=== PATIENT | female | born 1965 | race Caucasian/White ===

== ENCOUNTER 2020-09-02 22:32 | Inpatient (IN) | payer OTHER ==
[2020-09-02 22:48] LABS: Absolute Lymphocytes (CBC) 1.4 K/uL (0.7-4.9); Basophils % 0.8 % (0-1.3); Hematocrit 25.4 % (36.0-45.0); Lymphocytes % 14.2 % (15.3-44.8); MPV 7.8 fL (7.6-11.3); RBC Red Blood Cell Count 3.02 M/uL (3.86-4.86)
[2020-09-02 23:15] LABS: Barbiturates NEGATIVE (NEGATIVE); Benzodiazepines NEGATIVE (NEGATIVE); Cocaine NEGATIVE (NEGATIVE); METHAMPHETAM POSITIVE (NEGATIVE); Methadone NEGATIVE (NEGATIVE); Opiates POSITIVE (NEGATIVE); Phencyclidine NEGATIVE (NEGATIVE); THC Cannibis NEGATIVE (NEGATIVE)
[2020-09-02] MEDS ORDERED: NA CHLORIDE 0.9% 1,000 ML ONE (23:15)
[2020-09-02 23:16] LABS: ALT/SGPT 23 U/L (12-78); AST/SGOT 24 U/L (15-37); Alkaline Phosphatase 86 U/L (45-117); BUN Blood Urea Nitrogen 24 mg/dL (7-18); Bicarbonate 25 mmol/L (21-32); Bilirubin Direct < 0.1 mg/dL (0-0.2); Bilirubin Total 0.3 mg/dL (0.2-1.0); Glucose Level 103 mg/dL (74-106); Protein, Total 8.4 g/dL (6.4-8.2); Sodium Level 138 mmol/L (136-145)
[2020-09-02 23:18] LABS: Potassium 2.9 mmol/L (3.5-5.1)
--- NOTE | 2020-09-02 23:50 | EDPHYS ---
Physician Documentation [facility] Name: Samir Linares Age: 55 yrs Sex: Female : 1965 Arrival Date: 09/02/2020 Time: 22:35 Bed 4 Private MD: ED Physician Fransisco Hickman HPI: 09/02 23:42 This 55 yrs old Female presents to ER via EMS with complaints of Altered angelica Mental Status. 23:42 The patient presents with confusion, decreased responsiveness, trouble concentrating. angelica Onset: The symptoms/episode began/occurred just prior to arrival. Possible causes: CVA or TIA, drug use, alcohol. Associated signs and symptoms: Pertinent positives: confusion. Current symptoms: In the emergency department the patient's symptoms are unchanged from the initial presentation. Patient's baseline: Neuro: alert and fully oriented. The patient has experienced similar episodes in the past, a few times. 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 - Post-menopause rv Historical: - Allergies: 22:58 No Known Allergies; lp1 - Home Meds: 22:58 Oxycodone HCl Oral every 6 hours [Active]; methocarbamol 750 mg Oral tab 3 times per lp1 day [Active]; pramipexole 0.125 mg oral tab 3 tabs nightly [Active]; potassium chloride 10 mEq Oral TbER 1 tab once daily [Active]; zolpidem 10 mg Oral tab nightly [Active]; gabapentin 800 mg oral tab every 6 hours [Active]; omeprazole 40 mg Oral cpDR 1 cap 2 times per day [Active]; baclofen 10 mg Oral tab 1 tab 3 times per day [Active]; levothyroxine 137 mcg tab 1 tab once daily [Active]; Adderall XR 30 mg Oral cp24 twice a day [Active]; trazodone 150 mg Oral tab nightly [Active]; venlafaxine 75 mg oral tab 3 cap daily [Active]; topiramate 50 mg oral tab 1 tab 2 times per day [Active]; furosemide 20 mg Oral tab 1 tab once daily [Active]; 23:12 IV Ig treatments [Active]; lp1 - PMHx: 23:12 CIDP- autoimmune disease; Hypertension; lp1 - PSHx: 23:12 Jaw surgery; lp1 - Immunization history:: Adult Immunizations up to date. - Social history:: Smoking status: Smoking status: Patient reports the use of cigarette tobacco products, smokes one pack cigarettes per day. - Family history:: not pertinent. ROS: 23:43 Constitutional: Negative for fever, chills, and weight loss, Eyes: Negative for injury, angelica pain, redness, and discharge, ENT: Negative for injury, pain, and discharge, Neck: Negative for injury, pain, and swelling, Cardiovascular: Negative for chest pain, palpitations, and edema, Respiratory: Negative for shortness of breath, cough, wheezing, and pleuritic chest pain, Abdomen/GI: Negative for abdominal pain, nausea, vomiting, diarrhea, and constipation, Back: Negative for injury and pain, : Negative for injury, bleeding, discharge, and swelling, MS/Extremity: Negative for injury and deformity, Skin: Negative for injury, rash, and discoloration, Psych: Negative for depression, anxiety, suicide ideation, homicidal ideation, and hallucinations, Allergy/Immunology: Negative for hives, rash, and allergies, Endocrine: Negative for neck swelling, polydipsia, polyuria, polyphagia, and marked weight changes, Hematologic/Lymphatic: Negative for swollen nodes, abnormal bleeding, and unusual bruising. 23:43 Neuro: Positive for altered mental status. Exam: 23:43 Constitutional: This is a well developed, well nourished patient who is awake, alert, angelica and in no acute distress. Head/Face: Normocephalic, atraumatic. Eyes: Pupils equal round and reactive to light, extra-ocular motions intact. Lids and lashes normal. Conjunctiva and sclera are non-icteric and not injected. Cornea within normal limits. Periorbital areas with no swelling, redness, or edema. ENT: Nares patent. No nasal discharge, no septal abnormalities noted. Tympanic membranes are normal and external auditory canals are clear. Oropharynx with no redness, swelling, or masses, exudates, or evidence of obstruction, uvula midline. Mucous membranes moist. Neck: Trachea midline, no thyromegaly or masses palpated, and no cervical lymphadenopathy. Supple, full range of motion without nuchal rigidity, or vertebral point tenderness. No Meningismus. Chest/axilla: Normal chest wall appearance and motion. Nontender with no deformity. No lesions are appreciated. Cardiovascular: Regular rate and rhythm with a normal S1 and S2. No gallops, murmurs, or rubs. Normal PMI, no JVD. No pulse deficits. Abdomen/GI: Soft, non-tender, with normal bowel sounds. No distension or tympany. No guarding or rebound. No evidence of tenderness throughout. Back: No spinal tenderness. No costovertebral tenderness. Full range of motion. Skin: Warm, dry with normal turgor. Normal color with no rashes, no lesions, and no evidence of cellulitis. MS/ Extremity: Pulses equal, no cyanosis. Neurovascular intact. Full, normal range of motion. Psych: Awake, alert, with orientation to person, place and time. Behavior, mood, and affect are within normal limits. 23:43 Respiratory: the patient does not display signs of respiratory distress, Respirations: normal, Breath sounds: bronchial sounds, rhonchi, that are mild, are scattered, Respiratory rate: 81 09/03 00:44 ECG was reviewed by the Attending Physician. angelica Vital Signs: 09/02 22:20 BP 98 / 68; Pulse 81; Resp 16; Temp 97.9(A); Pulse Ox 100% on R/A; Weight 99.79 kg; lp1 09/03 00:35 BP 142 / 86; Pulse 84; Resp 17; Pulse Ox 100% on R/A; rv MDM: 09/02 22:56 Patient medically screened. angelica 23:45 Differential Diagnosis: CVA, electrolyte abnormality, alcohol intoxication, angelica hypoglycemia, intracranial bleed, overdose, pneumonia, TIA, volume depletion. Data reviewed: vital signs, nurses notes, EMS record, lab test result(s), EKG, radiologic studies, CT scan, plain films. Data interpreted: cardiac monitor: rate is 81 beats/min, rhythm is regular, Pulse oximetry: on room air is 100 %. Test interpretation: by ED physician or midlevel provider: ECG, plain radiologic studies. Counseling: I had a detailed discussion with the patient and/or guardian regarding: the historical points, exam findings, and any diagnostic results supporting the discharge/admit diagnosis, lab results, radiology results, the need for further work-up and treatment in the hospital. 09/02 22:36 Order name: Acetaminophen; Complete Time: 23:28 rv 09/02 22:36 Order name: Basic Metabolic Panel; Complete Time: 23:28 rv 09/02 22:36 Order name: CBC with Diff; Complete Time: 23:28 09/02 22:36 Order name: ETOH Level; Complete Time: 23:28 09/02 22:36 Order name: Hepatic Function; Complete Time: 23:28 09/02 22:36 Order name: PT-INR; Complete Time: 23:28 09/02 22:36 Order name: Ptt, Activated; Complete Time: 23:28 09/02 22:36 Order name: Salicylate; Complete Time: 23:28 09/02 22:36 Order name: Urine Drug Screen; Complete Time: 23:28 09/02 22:48 Order name: Glucose, Ancillary Testing; Complete Time: 23:28 [facility] 09/02 23:28 Order name: Magnesium; Complete Time: 00:37 [facility] 09/02 23:28 Order name: NT PRO-BNP; Complete Time: 00:37 [facility] 09/02 23:28 Order name: Troponin (emerg Dept Use Only); Complete Time: 00:37 [facility] 09/02 23:47 Order name: Urine Culture [facility] 09/02 22:36 Order name: EKG; Complete Time: 22:37 09/02 23:28 Order name: XRAY Chest (1 view) [facility] 09/02 23:39 Order name: CT Head Brain wo Cont [facility] 09/02 23:39 Order name: CT Stone Protocol [facility] 09/03 05:26 Order name: CBC with Automated Diff [facility] 09/03 05:35 Order name: Basic Metabolic Panel [facility] 09/03 05:35 Order name: T4 Free [facility] 09/03 05:35 Order name: Magnesium [facility] 09/03 05:35 Order name: Transferrin Sat/Iron Binding [facility] 09/03 05:35 Order name: Ferritin [facility] 09/02 22:36 Order name: EKG - Nurse/Tech; Complete Time: 22:57 09/02 22:36 Order name: IV Saline Lock; Complete Time: 22:36 09/02 22:36 Order name: Labs collected and sent; Complete Time: 22:36 09/02 22:36 Order name: Urine Dipstick-Ancillary (obtain specimen); Complete Time: 22:57 09/02 23:28 Order name: Cardiac monitoring; Complete Time: 23:33 [facility] 09/02 23:28 Order name: O2 Per Protocol; Complete Time: 23:33 angelica 09/02 23:28 Order name: O2 Sat Monitoring; Complete Time: 23:34 angelica EC/18 00:44 Rate is 80 beats/min. Rhythm is regular. QRS [place] is Normal. MD interval is normal. QRS angelica interval is normal. QT interval is prolonged at 491 msec. No Q waves. T waves are Normal. No ST changes noted. Clinical impression: NSR w/ Non-specific ST/T Changes. Interpreted by me. Reviewed by me. Administered Medications: 09/02 23:08 Drug: NS 0.9% 1000 ml Route: IV; Rate: 1 bolus; Site: left antecubital; rv 09/03 00:52 Follow up: IV Status: Completed infusion; IV Intake: 1000ml rv 00:30 Drug: Potassium Chloride 20 mEq Route: PO; rv 00:52 Follow up: Response: No adverse reaction rv 00:30 Drug: Potassium Chloride 20 mEq Route: IV; Rate: per protocol; Site: left antecubital; rv 00:52 Follow up: IV Status: Infusion continued upon admission rv 00:30 Drug: NS 0.9% with KCl 20 mEq/L 1000 ml Route: IV; Rate: 125 ml/hr; Site: left rv antecubital; 00:51 Follow up: IV Status: Infusion continued upon admission rv 00:30 Drug: Pepcid 20 mg Route: IVP; Site: left antecubital; rv 00:51 Follow up: Response: No adverse reaction rv 00:30 Drug: Rocephin 1 grams Route: IV; Rate: per protocol; Site: left antecubital; rv 00:35 Follow up: IV Status: Completed infusion; IV Intake: 10ml rv Disposition: 09/02/20 23:49 Hospitalization ordered by Marcus Muir for Inpatient Admission. Preliminary diagnosis are Altered mental status, unspecified - overdose, Anemia, unspecified, Chronic inflammatory demyelinating polyneuritis, Hypokalemia. - Bed requested for [facility] ER HOLD. - Status is Inpatient Admission. aa5 - Condition is Fair. - Problem is new. - Symptoms have improved. Signatures: Dispatcher [employer] EDFransisco Williamson MD MD cha Calderon, Audri, RN RN aa5 Micaela Page RN RN lp1 Claudio Christian FNP-C BUSINESS LAW INSTRUCTOR-Bossman1 Kathy Browning, RN RN cg Sarath Hedrick, RN RN rv Corrections: (The following items were deleted from the chart) 09/02 23:12 22:58 PMHx: Multiple Sclerosis; lp1 lp1 09/03 00:52 09/02 23:49 Hospitalization Ordered by Marcus Muir MD for Inpatient Admission. cg Preliminary diagnosis is Altered mental status, unspecified - overdose; Anemia, unspecified; Chronic inflammatory demyelinating polyneuritis; Hypokalemia. Bed requested for Telemetry/MedSurg (Inpatient). Status is Inpatient Admission. Condition is Fair. Problem is new. Symptoms have improved. angelica 09/03 07:13 00:52 09/02/2020 23:49 Hospitalization Ordered by Marcus Muir MD for Inpatient aa5 Admission. Preliminary diagnosis is Altered mental status, unspecified - overdose; Anemia, unspecified; Chronic inflammatory demyelinating polyneuritis; Hypokalemia. Bed requested for [facility] ER HOLD. Status is Inpatient Admission. Condition is Fair. Problem is new. Symptoms have improved. cg
--- NOTE | 2020-09-02 23:50 | ER ---
Nurse's Notes [facility] Name: Samir Linares Age: 55 yrs Sex: Female : 1965 Arrival Date: 09/02/2020 Time: 22:35 Bed 4 Private MD: Diagnosis: Altered mental status, unspecified-overdose;Anemia, unspecified;Chronic inflammatory demyelinating polyneuritis;Hypokalemia Presentation: 09/02 22:20 Chief complaint: EMS states: [place] house; Per EMS, patient had RR 8, O2 93% on RA, pupils pinpoint; Hx of MS, taking Oxycodone; Given Narcan 2mg IV, patient more responsive on arrival to ED. 22:20 Coronavirus screen: Client denies travel out of the [place] in the last 14 days. At this lp1 time, the client does not indicate any symptoms associated with coronavirus-19. Ebola Screen: No symptoms or risks identified at this time. Initial Sepsis Screen: Does the patient meet any 2 criteria? No. Patient's initial sepsis screen is negative. Does the patient have a suspected source of infection? No. Patient's initial sepsis screen is negative. Risk Assessment: Do you want to hurt yourself or someone else? Patient reports no desire to harm self or others. Onset of symptoms was September 02, 2020. 22:20 Method Of Arrival: EMS: [facility] lp1 22:20 Acuity: JAYE 2 lp1 22:59 Care prior to arrival: IV initiated. 20 GA, in the left antecubital area, Glucose lp1 check: 124. 23:02 Care prior to arrival: Medication(s) given: Narcan 2mg IV, NS 1L IV. 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 rv Historical: - Allergies: 22:58 No Known Allergies; lp1 - Home Meds: 22:58 Oxycodone HCl Oral every 6 hours [Active]; methocarbamol 750 mg Oral tab 3 times per lp1 day [Active]; pramipexole 0.125 mg oral tab 3 tabs nightly [Active]; potassium chloride 10 mEq Oral TbER 1 tab once daily [Active]; zolpidem 10 mg Oral tab nightly [Active]; gabapentin 800 mg oral tab every 6 hours [Active]; omeprazole 40 mg Oral cpDR 1 cap 2 times per day [Active]; baclofen 10 mg Oral tab 1 tab 3 times per day [Active]; levothyroxine 137 mcg tab 1 tab once daily [Active]; Adderall XR 30 mg Oral cp24 twice a day [Active]; trazodone 150 mg Oral tab nightly [Active]; venlafaxine 75 mg oral tab 3 cap daily [Active]; topiramate 50 mg oral tab 1 tab 2 times per day [Active]; furosemide 20 mg Oral tab 1 tab once daily [Active]; 23:12 IV Ig treatments [Active]; lp1 - PMHx: 23:12 CIDP- autoimmune disease; Hypertension; lp1 - PSHx: 23:12 Jaw surgery; lp1 - Immunization history:: Adult Immunizations up to date. - Social history:: Smoking status: Smoking status: Patient reports the use of cigarette tobacco products, smokes one pack cigarettes per day. - Family history:: not pertinent. Screenin:54 Abuse screen: Denies threats or abuse. Denies injuries from another. Nutritional rv screening: No deficits noted. Tuberculosis screening: No symptoms or risk factors identified. Fall Risk None identified. Assessment: 22:53 General: Appears unkempt, Behavior is drowsy, restless. Pain: Denies pain. Neuro: Level rv of Consciousness is awake, confused, Oriented to person, place. Cardiovascular: Patient's skin is warm and dry. Respiratory: Airway is patent Respiratory effort is even, unlabored, Breath sounds are clear bilaterally. Derm: Skin is intact. 09/03 00:34 Neuro: Level of Consciousness is confused, lethargic, Oriented to person, place. rv Cardiovascular: Patient's skin is warm and dry. Rhythm is regular. Respiratory: Airway is patent Respiratory effort is even, unlabored, Breath sounds are clear bilaterally. Vital Signs: 09/02 22:20 BP 98 / 68; Pulse 81; Resp 16; Temp 97.9(A); Pulse Ox 100% on R/A; Weight 99.79 kg; lp1 09/03 00:35 BP 142 / 86; Pulse 84; Resp 17; Pulse Ox 100% on R/A; rv ED Course: 09/02 22:35 Patient arrived in ED. lp1 22:37 Sarath Hedrick RN is Primary Nurse. rv 22:51 Triage completed. lp1 22:52 Arm band placed on. lp1 22:54 Patient has correct armband on for positive identification. Placed in gown. Bed in low rv position. Call light in reach. Side rails up X2. Adult w/ patient. 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 Pulse ox on. NIBP on. 22:54 Maintain EMS IV. Dressing intact. Good blood return noted. Site clean \T\ dry. Gauge \T\ rv site: G20 LEFT AC. 22:56 Fransisco Hickman MD is Attending Physician. angelica 23:48 Marcus Muir MD is Hospitalizing Provider. angelica 09/03 00:20 XRAY Chest (1 view) In Process Unspecified. EDMS 00:26 CT Head Brain wo Cont In Process Unspecified. EDMS 00:26 CT Stone Protocol In Process Unspecified. EDMS 00:49 No provider procedures requiring assistance completed. Inserted saline lock: 20 gauge rv in left forearm, using aseptic technique. IV is patent, with fluids infusing freely, Patient admitted, IV remains in place. Administered Medications: 09/02 23:08 Drug: NS 0.9% 1000 ml Route: IV; Rate: 1 bolus; Site: left antecubital; rv 09/03 00:52 Follow up: IV Status: Completed infusion; IV Intake: 1000ml rv 00:30 Drug: Potassium Chloride 20 mEq Route: PO; rv 00:52 Follow up: Response: No adverse reaction rv 00:30 Drug: Potassium Chloride 20 mEq Route: IV; Rate: per protocol; Site: left antecubital; rv 00:52 Follow up: IV Status: Infusion continued upon admission rv 00:30 Drug: NS 0.9% with KCl 20 mEq/L 1000 ml Route: IV; Rate: 125 ml/hr; Site: left rv antecubital; 00:51 Follow up: IV Status: Infusion continued upon admission rv 00:30 Drug: Pepcid 20 mg Route: IVP; Site: left antecubital; rv 00:51 Follow up: Response: No adverse reaction rv 00:30 Drug: Rocephin 1 grams Route: IV; Rate: per protocol; Site: left antecubital; rv 00:35 Follow up: IV Status: Completed infusion; IV Intake: 10ml rv Intake: 00:35 IV: 10ml; Total: 10ml. rv 00:52 IV: 1000ml; Total: 1010ml. rv Outcome: 09/02 23:49 Decision to Hospitalize by Provider. angelica 09/03 00:50 Admitted to ER Hold. Please see [facility] for further documentation. rv Condition: good Instructed on the need for admit. 07:13 Patient left the ED. aa5 Signatures: Dispatcher [employer] EDFransisco Williamson MD MD cha Calderon, Audri, RN RN aa5 Micaela Page RN RN lp1 Sarath Hedrick RN RN rv Corrections: (The following items were deleted from the chart) 09/02 23:00 22:20 Chief complaint: EMS states: Called for patient who [place] [facility] [place] by neighbor, carried to her house; Per EMS, patient had RR 8, pupils pinpoint; Hx of MS, taking Oxycodone; Given Narcan 2mg IV, patient more responsive on arrival to ED lp1 23:12 22:58 PMHx: Multiple Sclerosis; 1 lp1
[2020-09-02 23:54] LABS: Magnesium 2.4 mg/dL (1.8-2.4); NT PRO-BNP 19 pg/mL (<125); Troponin (Emerg Dept Use Only) < 0.02 ng/mL (0.0-0.045)
[2020-09-03] MEDS ORDERED: CEFTRIAXONE/SWI 1gm 1 GM/10 ML SYR ONE (00:16)
[2020-09-03] MEDS ORDERED: NS KCL 20MEQ 1,000 ML IV ONE (00:16)
[2020-09-03] MEDS ORDERED: POTASSIUM CL SA 10 MEQ TAB PO ONE ×3 (00:16→06:16)
[2020-09-03] MEDS ORDERED: FAMOTIDINE 20 MG/2 ML VIAL IV ONE (00:16)
[2020-09-03] MEDS ORDERED: KCL 20 MEQ/100 mL IVPB 20 MEQ/100 ML BAG IV ONE (00:17)
--- NOTE | 2020-09-03 00:44 | P.HP ---
Certification for Inpatient Patient admitted to: Observation With expected LOS: >2 Midnights Patient will require the following post-hospital care: None Practitioner: I am a practitioner with admitting privileges, knowledge of patient current condition, hospital course, and medical plan of care. Services: Services provided to patient in accordance with Admission requirements found in Title 42 Section 412.3 of the Code of Federal Regulations Patient History Date of Service: 09/03/20 Primary Care Provider: None Reason for admission: Opiate overdose History of Present Illness: 55-year-old female with history of CIDP, hypertension presents emergency department for altered mental status. Patient lives in [place] with her and came down to [facility] to get away from her daily life and think about her diagnosis of CIDP, autoimmune demyelination. Family reportedly found patient lying on the beach, unresponsive, EMS arrived and assessed found respirations less than 8, pinpoint pupils and gave her Narcan. Patient mentation improved rapidly after administration of Narcan. Patient transferred to the emergency department. Patient's workup in the emergency department revealed mild acute kidney injury creatinine 1.56 GFR 35 BUN 24, hypokalemia with potassium of 2.9, anemia with hemoglobin 8.5 and hematocrit 25.4, urine drug screen positive for methamphetamine and opioid although patient is prescribed both oxycodone and Adderall. Patient does admit that she may have taken too many of her oxycodone this evening to deal with her pain related to CIDP. Patient denies suicidal ideation states explicitly that she was not trying to harm herself just that she is hurting very badly. When I saw the patient in the emergency department. Initially she was only responsive to significant painful stimulation, patient not responsive to voice even when kneeling in her ear. Patient fell asleep during my interview on multiple occasions. Patient was maintaining her own airway. The patient is decreased mental status patient will be admitted to intensive care unit overnight for close monitoring. - Past Medical/Surgical History -: CIDP-chronic progressive autoimmune demyelinating disorder -: Hypertension -: Chronic pain -: Hysterectomy Psychosocial/ Personal History: Patient lives with her and [place] - Social History Smoking Status: Never smoker Alcohol use: Yes CD- Drugs: No Caffeine use: Yes Place of Residence: Home Review of Systems is unable to be obtained Physical Examination - Physical Exam General: Other (Obtunded, responsive to painful stimulus, falls asleep during conversation) HEENT: Atraumatic, Normocephalic, PERRLA, Other (Mucous membranes dry) Neck: Supple, 2+ carotid pulse no bruit Respiratory: Clear to auscultation bilaterally, Normal air movement Cardiovascular: Normal S1 S2 Capillary refill: <2 Seconds Gastrointestinal: Normal bowel sounds, Soft and benign, No masses, No rebound, No guarding Musculoskeletal: No erythema, No tenderness Integumentary: No tenderness/swelling, No erythema, No warmth Neurological: Normal speech, Normal strength at 5/5 x4 extr, Normal tone, Sensation intact - Studies Laboratory Data (last 24 hrs) 09/02/20 22:40: Magnesium 2.4 09/02/20 22:40: PT 11.8, INR 1.00, APTT 22.9 L 09/02/20 22:40: WBC 9.6, Hgb 8.5 L, Hct 25.4 L, Plt Count 358 09/02/20 22:40: Sodium 138, Potassium 2.9 L*, BUN 24 H, Creatinine 1.56 H, Glucose 103, Total Bilirubin 0.3, AST 24, ALT 23, Alkaline Phosphatase 86 Assessment and Plan - Plan Assessment Unintentional opiate overdose Acute kidney injury Hypokalemia Normocytic anemia Plan Unintentional opiate overdose: Close monitoring in intensive care overnight due to decreased mental status. P.r.n. Narcan. Monitor on telemetry. Will hold sedating medications. Patient takes gabapentin, baclofen, trazodone, Ambien, oxycodone at home. DVT prophylaxis in place. Acute kidney injury: Patient appears very dry, continue with IV rehydration overnight, recheck BMP with morning labs. Nephrology consult as necessary. Hypokalemia: Potassium protocol in place. Normocytic anemia: Likely anemia chronic disease, obtain iron studies with morning labs. Discharge Plan: Home Plan to discharge in: 24 Hours - Advance Directives Does patient have a Living Will: No Does patient have a Durable POA for Healthcare: No - Code Status/Comfort Care Code Status Assessed: Yes (Patient is full code) Critical Care: No Time Spent Managing Pts Care (In Minutes): 55
[2020-09-03] MEDS ORDERED: ONDANSETRON 4 MG/2 ML VIAL IV PRN (00:54)
[2020-09-03] MEDS ORDERED: NALOXONE 0.4 MG/ML VIAL IV PRN (00:54)
[2020-09-03] MEDS ORDERED: ACETAMINOPHEN 500 MG TAB PO PRN (00:54)
[2020-09-03] MEDS ORDERED: NA CHLORIDE 0.9% 1,000 ML IV SCH (01:00)
[2020-09-03 01:18] VITALS: BMI 28.1
[2020-09-03 01:30] VITALS: TEMP 98
[2020-09-03 01:39] VITALS: O2SAT 97
[2020-09-03 05:10] LABS: Absolute Lymphocytes (CBC) 1.6 K/uL (0.7-4.9); Basophils % 0.3 % (0-1.3); Hematocrit 28.1 % (36.0-45.0); Lymphocytes % 21.9 % (15.3-44.8); MPV 7.8 fL (7.6-11.3); RBC Red Blood Cell Count 3.31 M/uL (3.86-4.86)
[2020-09-03 05:35] LABS: Ferritin 85.1 ng/mL (8-388); Magnesium 2.6 mg/dL (1.8-2.4); Potassium 3.7 mmol/L (3.5-5.1)
[2020-09-03] MEDS ORDERED: dexAMETHasone 4 MG/ML VIAL IV ONE (07:50)
[2020-09-03] MEDS ORDERED: HEPARIN 5000 UNIT/ML 1 ML VIAL SQ SCH (09:00)
--- NOTE | 2020-09-03 09:22 | P.DS ---
Admission Date: 09/03/20 Discharge Date: 09/03/20 Primary Care Provider: None Disposition: ROUTINE DISCHARGE Discharge Condition: GOOD Reason for Admission: Opiate overdose Brief History of Present Illness: Patient is 55 years of age multiple medical problems was complaining of pain in the right lower lobe back area she had to cut medications in access was admitted to the hospital unresponsive Hospital Course: The time of discharge patient was alert oriented responsive cooperative his states that she took more the usual doses of her pain medication due to pain and lower back the time of discharge patient was ambulating no new complaints very alert a give a dose of steroids and IV Decadron prior to discharge vital signs and labs all stable urological exam was unremarkable cranial nerves normal no obvious weakness laboratory data reviewed patient to follow up with the primary care physician Vital Signs/Physical Exam: Temp Pulse Resp BP Pulse Ox 98 F 68 14 118/83 97 09/03/20 05:39 09/03/20 05:39 09/03/20 05:39 09/03/20 05:39 09/03/20 05:39 Laboratory Data at Discharge: WBC 7.4 K/uL (4.3-10.9) D 09/03/20 04:45 Hgb 9.2 g/dL (12.0-15.0) L 09/03/20 04:45 Hct 28.1 % (36.0-45.0) L 09/03/20 04:45 Plt Count 392 K/uL (152-406) 09/03/20 04:45 PT 11.8 SECONDS (9.5-12.5) 09/02/20 22:40 INR 1.00 09/02/20 22:40 APTT 22.9 SECONDS (24.3-36.9) L 09/02/20 22:40 Sodium 141 mmol/L (136-145) 09/03/20 04:45 Potassium 3.7 mmol/L (3.5-5.1) 09/03/20 04:45 BUN 18 mg/dL (7-18) 09/03/20 04:45 Creatinine 0.93 mg/dL (0.55-1.3) 09/03/20 04:45 Glucose 95 mg/dL (74-106) 09/03/20 04:45 Magnesium 2.6 mg/dL (1.8-2.4) H 09/03/20 04:45 Total Bilirubin 0.3 mg/dL (0.2-1.0) 09/02/20 22:40 AST 24 U/L (15-37) 09/02/20 22:40 ALT 23 U/L (12-78) 09/02/20 22:40 Alkaline Phosphatase 86 U/L (45-117) 09/02/20 22:40 Home Medications: dexAMETHasone [Dexamethasone] 4 mg PO BID #10 tablet 09/03/20 New Medications: dexAMETHasone [Dexamethasone] 4 mg PO BID #10 tablet Patient Discharge Instructions: Patient to resume home medications and follow with the primary care doctor. Please call in a prescription for dexamethasone. Please also give her Decadron 4 mg IV prior to discharge Diet: Regular Activity: Ad brenda
[2020-09-03 09:27] VITALS: BP 120/64
--- NOTE | 2020-09-03 11:58 | RAD REPORT ---
EXAM DESCRIPTION: RAD - Chest Single View - 09/03/2020 12:20 am CLINICAL HISTORY: COUGH Chest pain. COMPARISON: No comparisons FINDINGS: Portable technique limits examination quality. The lungs are underinflated but grossly clear. The heart is normal in size. Left-sided port catheter has tip in the SVC. IMPRESSION: No acute intrathoracic process suspected.
--- NOTE | 2020-09-03 15:43 | RAD REPORT ---
EXAM DESCRIPTION: Head Brain Wo Cont CLINICAL HISTORY: 55 years Female MENTAL STATUS CHANGE COMPARISON: None. TECHNIQUE: Contiguous axial CT images obtained through the brain without IV contrast. This exam was performed according to our department optimization program which includes automated exp osure control, adjustment of the mA and/or kv according to patient size and/or use of iterative recon struction technique. FINDINGS: The patient's head is tilted in the gantry. The ventricles and sulci are mildly prominent. No mass lesions. No acute hemorrhage. There is mild mucosal thickening in the left maxillary sinus. No depressed calvarial fractures. There are postsurgical changes from previous facial bone fractures. IMPRESSION: No acute intracranial abnormality is identified. If there is clinical concern for the possibility of acute ischemic change, MRI could be obtained to better evaluate. Electronically signed by: Dominguez Artis MD 09/03/2020 12:34 AM CDT Due to temporary technical issues with the PACS/Fluency reporting system, reports are being signed by the in house radiologist without review as a courtesy to ensure prompt reporting. The interpreting r adiologist is fully responsible for the content of the report.
--- NOTE | 2020-09-03 15:45 | RAD REPORT ---
EXAM DESCRIPTION: Stone Protocol CLINICAL HISTORY: 55 years Female Abd pain;Flank pain COMPARISON: None. TECHNIQUE: Contiguous axial images obtained through the abdomen and pelvis without IV contrast. Refo rmatted images obtained. This exam was performed according to our department optimization program which includes automated exp osure control, adjustment of the mA and/or kv according to patient size and/or use of iterative recon struction technique. FINDINGS: There is mild motion artifact on the images. The images are also suboptimal from the patie nt's overlying arms. Mild scarring/atelectasis in the lower lungs. There is a low-density lesion in the right lobe of the liver measuring 1 cm in diameter. The lesion i s incompletely characterized but most likely represents a cyst. The spleen and pancreas appear unremarkable. No adrenal masses. There is a small cyst in the superior pole of the right kidney. No hydronephrosis or ureteral calculi . The gallbladder is visualized. Mild atherosclerotic calcifications. No aneurysmal dilatation of the aorta. The colon is slightly distended with stool which could be from constipation. No bowel obstruction. Th e appendix appears unremarkable. There are occasional colonic diverticula. No significant free pelvic fluid. There are changes from previous hysterectomy. Degenerative changes in the spine. IMPRESSION: The colon is slightly distended with stool which could be from constipation. There are f indings as described above but no definite acute abnormality is identified. Electronically signed by: Dominguez Artis MD 09/03/2020 12:42 AM CDT Due to temporary technical issues with the PACS/Fluency reporting system, reports are being signed by the in house radiologist without review as a courtesy to ensure prompt reporting. The interpreting r adiologist is fully responsible for the content of the report.
== END 2020-09-03 09:32 | disposition home or self-care (01) | DRG 918 ==
LOC: ER 22:32 → ERHOLD 09-03 00:24
PROVIDERS: ADMIT Internal Medicine Sleep Medicine; ATTEND Internal Medicine Sleep Medicine
DX: T40.601A Poisoning by unspecified narcotics, accidental (unintentional), initial encounter (principal); N17.9 Acute kidney failure, unspecified; I10 Essential (primary) hypertension; D64.9 Anemia, unspecified; F17.210 Nicotine dependence, cigarettes, uncomplicated; E87.6 Hypokalemia; G89.29 Other chronic pain; Z79.890 Hormone replacement therapy; Z79.899 Other long term (current) drug therapy; Z79.891 Long term (current) use of opiate analgesic; Z90.710 Acquired absence of both cervix and uterus
CPT/HCPCS: 36415; 70450; 71045; 74176; 76377; 80048; 80076; 80307; 80320; 80329; 82728; 82947; 83540; 83735; 83880; 84439; 84466; 84484; 85025; 85610; 85730; 87086; 87088; 93005; 96361; 96365; 96375; 99285; J0696; J3480; J7030